=== PATIENT | female | born 1990 | race Caucasian/White ===

== ENCOUNTER 2018-03-03 17:51 | Emergency (ER) | payer OTHER ==
--- NOTE | 2018-03-03 18:54 | EDM.PDOC ---
ED HPI GENERAL MEDICAL PROBLEM - General Chief Complaint: Skin Complaint Stated Complaint: BURNING RASH, BOTH HANDS Time Seen by Provider: 03/03/18 18:35 Source of Information: Reports: Patient, RN History Limitations: Reports: No Limitations - History of Present Illness INITIAL COMMENTS - FREE TEXT/NARRATIVE: 28 yo female on doxycycline presents with a red rash on both hands that feels like burning. Discussed with a pharmacist and he advised oral and topical Benedryl which is not helping. Had long sleeve shirt and long pants on as well as a hat when outside today. No hx of the same. Onset: Today Onset Date: 03/03/18 Onset Time: 16:00 Duration: Hour(s):, Constant Location: Reports: Upper Extremity, Left, Upper Extremity, Right Quality: Reports: Burning Severity: Mild Improves with: Reports: None Worsens with: Reports: None Context: Reports: Other (moderate sun exposure. ) Associated Symptoms: Reports: No Other Symptoms (none) Treatments RECREATIONAL DIRECTOR: Reports: Other (see below) (Benedryl) - Related Data Allergies Allergy/AdvReac Type Severity Reaction Status Date / Time No Known Allergies Allergy Verified 03/03/18 18:30 Home Meds: Home Meds Apixaban [Eliquis] 03/03/18 [History] Clindamycin Phos/Skin Clnsr 19 [Clindacin Etz Kit] 03/03/18 [History] Doxycycline [Vibramycin] 03/03/18 [History] Spironolactone [Aldactone] 03/03/18 [History] Past Medical History Respiratory History: Reports: PE Social & Family History - Tobacco Use Smoking Status *Q: Never Smoker ED ROS GENERAL - Review of Systems Review Of Systems: See Below Constitutional: Reports: No Symptoms Respiratory: Reports: No Symptoms Skin: Reports: Rash, Erythema. Denies: Pruritis, Burn(s) Neurological: Reports: No Symptoms ED EXAM, SKIN/RASH Exam: See Below Exam Limited By: No Limitations General Appearance: Alert, WD/WN, No Apparent Distress Eye Exam: Bilateral Eye: Normal Inspection Ears: Normal External Exam, Normal Canal, Hearing Grossly Normal Nose: Normal Inspection, Normal Mucosa, No Blood Throat/Mouth: Normal Inspection, Normal Lips, Normal Oropharynx, Normal Voice, No Airway Compromise Head: Atraumatic Respiratory/Chest: No Respiratory Distress, No Accessory Muscle Use Cardiovascular: Regular Rate, Rhythm Extremities: Normal Inspection, Normal Range of Motion, Non-Tender, No Pedal Edema Neurological: Alert, Oriented, CN II-XII Intact, Normal Cognition, No Motor/ Sensory Deficits Psychiatric: Normal Affect, Normal Mood Skin: Warm, Dry, Intact, Normal Color, No Rash Location, Skin: Upper Extremity, Right, Upper Extremity, Left Characteristics: Confluent, Erythematous Associated features: Tenderness, Inflammation. No: Swelling, Induration, Scaling, Lymphangitis, Crusting, Weeping Course - Vital Signs Last Recorded V/S: Last Vital Signs Temp 36.5 C 03/03/18 18:40 Pulse 81 03/03/18 18:40 Resp 18 03/03/18 18:40 BP 138/85 03/03/18 18:40 Pulse Ox 99 03/03/18 18:40 Departure - Departure Time of Disposition: 18:59 Disposition: Home, Self-Care 01 Condition: Good Clinical Impression: Photosensitivity dermatitis - Discharge Information Referrals: PCP,None [Primary Care Provider] - Forms: ED Department Discharge Additional Instructions: Use Dove unscented for washing your hands. Keep your hands out of the sun until your rash resolves. Use caution with future sun exposure if still taking the doxycycline. Discuss this issue with your economic specialist.
== END 2018-03-03 19:13 | disposition home or self-care (01) ==
LOC: JP.ED 17:51
DX: L56.2 Photocontact dermatitis [berloque dermatitis] (principal); X32.XXXA Exposure to sunlight, initial encounter
CPT/HCPCS: 99283